=== PATIENT | male | born 1950 | race Hispanic/Latino ===

== ENCOUNTER 2023-09-04 10:03 | Inpatient (IN) | payer OTHER ==
--- OUTSIDE RECORDS SUMMARY | 2023-09-04 20:50 | XMS REPORT | Clinical Summary ---
Author Name Unknown Organization [facility] Address [address] [place] [address] Care Team Providers Care Qual Field Manager Name Role Phone Juwan Wu MD Unavailable [phone] Zayda Richards MD Primary Care Provider [phone] Merline Britt MD Unavailable [phone] Praveena Harman Unavailable [phone] Williams Ortiz MD Unavailable [phone] Hany Jackson MD Unavailable + [phone] Allergies No known active allergies Medications Medication Sig Dispensed Refills Start Date End Date Status amLODIPine (NORVASC) 5 mg tablet 12/28/2021 Active aspirin 81 mg EC tablet Take 1 tablet (81 mg) by mouth. Active carvedilol (COREG) 3.125 mg tablet Take 1 tablet (3.125 mg) by mouth. 01/20/2021 Active clonazePAM (KlonoPIN) 0.5 mg tablet TAKE 1 TABLET BY MOUTH EVERY NIGHT AT BEDTIME Active clopidogrel (PLAVIX) 75 mg tablet Take 1 tablet (75 mg) by mouth. 03/15/2012 Active folic acid (FOLVITE) 400 mcg tablet Take 1 tablet (400 mcg) by mouth. Active GINKGO BILOBA LEAF EXTRACT ORAL Take by mouth. Active icosapent ethyl 1 gram cap Take 4 g by mouth. 03/11/2021 Active NovoLOG U-100 Insulin aspart 100 unit/mL injection 12/29/2020 Active lisinopril (PRINIVIL,ZESTRIL) 40 mg tablet Take 1 tablet (40 mg) by mouth. 03/15/2012 Active melatonin 10 mg cap Take 5 mg by mouth. Active pyridoxine (VITAMIN B-6) 50 mg tablet Take 1 tablet (50 mg) by mouth. Active simvastatin (ZOCOR) 40 mg tablet Take 1 tablet (40 mg) by mouth. 03/15/2012 Active atorvastatin (LIPITOR) 80 mg tablet Take 1 tablet (80 mg) by mouth at bedtime. 06/18/2023 Active Active Problems Problem Noted Date Diagnosed Date Gastrointestinal stromal tumor of stomach 2022 Type 1 diabetes mellitus 11/26/2022 Encounters Date Type Department Care Team Description 07/08/2023 12:45 PM CDT Follow[facility]Up [facility] [address] [place] [address] Main dg, 9th [place] [address] Zayda Richards MD Gastrointestinal stromal tumor of stomach 07/08/2023 6:22 AM CDT - 07/08/2023 11:59 PM CDT Hospital Encounter Main CT IMAGING [address] [place], [place] [address]dg, 3rd [place] [address] Snehal Moulton PA Gastrointestinal stromal tumor of stomach Discharge Disposition: Home 07/08/2023 Travel 11/26/2022 8:20 PM CDT Ancillary Procedure [facility] [address] [place] [id number] Zayda Richards MD Cancer 11/26/2022 8:15 PM CDT Ancillary Procedure [facility] [address] [place] [id number] Zayda Richards MD Cancer 11/26/2022 8:10 PM CDT Ancillary Procedure [facility] [address] [place] [id number] Zayda Richards MD Cancer 11/26/2022 8:05 PM CDT Ancillary Procedure [facility] [address] [place] [id number] Zayda Richards MD Cancer 11/26/2022 8:00 PM CDT Ancillary Procedure [facility] [address] [place] [id number] Zayda Richards MD Cancer 11/26/2022 11:15 AM CDT Office Visit [facility] [address] [place] [address], 9th [place] [address] Zayda Richards MD Gastrointestinal stromal tumor of stomach (Primary Dx) 11/26/2022 7:30 AM CDT Ancillary Procedure CT Imaging [address] [facility], 7th [place] [address] Snehal Moulton PA Gastrointestinal stromal tumor of stomach 11/26/2022 7:00 AM CDT NPR MDA PATIENT ACCESS Zayda Richards MD 11/26/2022 Travel 11/16/2022 Orders Only [facility] [address] [place] [address], 9th [place] [address] Snehal Moulton PA Gastrointestinal stromal tumor of stomach (Primary Dx) 11/12/2022 Lab Requisition [facility] Isaías Loera MD Schwartz, Mary Rebecca, MD 11/12/2022 Lab Requisition [facility] Isaías Loera MD Mody, Dina, MD 11/10/2022 8:05 PM CDT Ancillary Procedure [facility] [address] [place] [id number] Zayda Richards MD Cancer 11/10/2022 8:00 PM CDT Ancillary Procedure [facility] [address] [place] [id number] Zayda Richards MD Cancer 10/30/2022 Travel 09/21/2022 8:00 PM CDT Ancillary Procedure [facility] [address] [place] [id number] Guy Dowell MD Cancer after 09/04/2022 Surgical History Surgery Date Site/Laterality Comments BACK SURGERY 2021 COLONOSCOPY Check - September 2014 PROSTATE SURGERY 2020 STOMACH SURGERY Jun [address] ENT PLACEMENT 2001, 2016 FINGER SURGERY CATARACT EXTRACTION BILATERA L W/ ANTERIOR VITRECTOMY Medical History Medical History Date Comments Hypertension 1991 Peripheral vascular disease 1991 Hearing loss 1989 Loss of sense of smell 2004 Dependence on continuous positive airway pressur e ventilation 1998 Hepatitis 1984 Renal stone Nov 2021 Sexual dysfunction 1986 Anemia 1992 Arthritis 2021 Type 1 diabetes mellitus 196 Malignant neoplasm of prostate 2020 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 Family History Medical History Relation Name Comments Cervical cancer Sister Candi In treatment s Relation Name Status Comments Sister Candi Social History Tobacco Use Types Packs/Day Years Used Date Smoking Tobacco: Never Smokeless Tobacco: Never Tobacco Cessation:Counseling Given: Not Answered Alcohol Use Standard Drinks/Week Comments Yes 1 (1 standard drink = 0.6 oz pur e alcohol) Per month 1 wine/1 liquor Sex and Gender Information Value Date Recorded Sex Assigned at Not on file Gender Identity Not on file Sexual Orientation Not on file Job Start Date Occupation Industry Not on file Not on file Not on file Obstetrics History Last Filed Vital Signs Vital Sign Reading Time Taken Comments Blood Pressure 121/56 07/08/2023 9:17 AM CDT Pulse 77 07/08/2023 9:17 AM CDT Temperature 36.4 C (97.5 F) 07/08/2023 9:17 AM CD T Respiratory Rate 16 07/08/2023 9:17 AM CDT Oxygen Saturation 99% 07/08/2023 9:17 AM CDT Inhaled Oxygen Concentration - - Weight 82.2 kg (181 lb 3.5 oz) 07/08/2023 9:10 A M CDT Height 170.5 cm (5' 7.13") 11/26/2022 11:07 AM C DT Body Mass Index 28.28 11/26/2022 11:07 AM CDT Plan of Treatment Upcoming Encounters Date Type Department Care Team (Late st Contact Info) Description 01/06/2024 6:55 AM CDT Ancillary Procedure CT Imaging [address] [facility], 7th [place] [address] Snehal Moulton PA [address] [place] [address] 01/06/2024 10:00 AM CDT [facility] Main Bldg, 9th [place] [address] Zayda Richards MD [address] [place] [address] Health Maintenance Due Date Last Done Comments COVID-19 Vaccine (2022- 4 season) 2022 08/20/2021, 08/20/2021, 11/29/2020, Additional history exists Influenza Vaccine 12/12/2023 01/22/2022, 02/07/2021 Procedures Procedure Name Priority Date/Time Associated Diagnosis Comments CT ABDOMEN PELVIS W CONTRAST Routine 07/08/2023 8:12 AM CDT Gastrointestinal stromal tumor of stomach POC GLUCOSE SCREEN Routine 07/08/2023 8: 02 AM CDT POC GLUCOSE SCREEN Routine 07/08/2023 7: 35 AM CDT POC GLUCOSE SCREEN Routine 11/26/2022 10 :[address] ABDOMEN PELVIS W CONTRAST Routine 11/26/2022 10:18 AM CDT Gastrointestinal stromal tumor of stomach POC CREATININE Routine 11/26/2022 8:53 AM CDT [facility]SI MRI ABDOMEN Routine 09/09/2022 10:52 AM CDT Cancer after 09/04/2022 Results * CT Abdomen Pelvis with Contrast (07/08/2023 8:12 AM CDT) Only the most recent of2 resultswithin the time period is included. Anatomical Region Laterality Modality Abdomen, Pelvis Computed Tomogra phy 07/08/2023 8:24 AM CDT Impressions 07/08/2023 8:36 AM CDT No evidence for metastatic disease in the abdomen or pelvis. ACTIONABLE ITEMS/RECOMMENDATIONS*: None. *An Actionable Finding is a finding that may be unrelated to the original reason for imaging but potentially actionable, meaning further investigation may be necessary. The Actionable Findings Vigilance Unit (AFVU) assists medical providers with responding to additional radiologic findings that are unexpected and potentially actionable. Narrative 07/08/2023 8:36 AM CDT FULL RESULT: Examination: CT ABDOMEN PELVIS W CONTRAST on 07/08/2023 8:12 AM. Clinical History: Gastrointestinal stromal tumor of stomach Indication: oncologic surveillance Comparison: CT study of the abdomen and pelvis 11/27/2023. Technique: CT ABDOMEN PELVIS W CONTRAST. FINDINGS: Lower Thorax: No suspicious pulmonary nodules or pleural effusions in the lung bases. Chronic subsegmental atelectasis or scarring is present in the right middle lobe and lower lingula. Hepatobiliary: No suspicious hepatic lesion. No biliary dilatation. No cholecystitis. Spleen: No splenomegaly. Stable small accessory spleen. Pancreas: No mass or ductal dilatation. Adrenal Glands: No mass. Kidneys, Ureters, Bladder: No hydronephrosis. No suspicious renal lesion. No bladder mass. Gastrointestinal Tract: Stable postoperative changes are present along the lesser curvature of the stomach. No measurable gastric mass is identified given the incomplete gastric distention. No obstruction. A moderate fecal load is present. Pelvic Organs: No pelvic mass. Peritoneum/Retroperitoneum: No ascites. Lymph Nodes: No regional or distant lymphadenopathy. Musculoskeletal: Stable multilevel degenerative-like bone changes are seen. Procedure Note Som Covarrubias MD - 07/08/2023 FULL RESULT: Examination: CT ABDOMEN PELVIS W CONTRAST on 07/08/2023 8:12 AM. Clinical History: Gastrointestinal stromal tumor of stomach Indication: oncologic surveillance Comparison: CT study of the abdomen and pelvis 11/27/2023. Technique: CT ABDOMEN PELVIS W CONTRAST. FINDINGS: Lower Thorax: No suspicious pulmonary nodules or pleural effusions in the lung bases. Chronic subsegmental atelectasis or scarring is present in the rightmiddle lobe and lower lingula. Hepatobiliary: No suspicious hepatic lesion. No biliary dilatation. No cholecystitis. Spleen: No splenomegaly. Stable small accessory spleen. Pancreas: No mass or ductal dilatation. Adrenal Glands: No mass. Kidneys, Ureters, Bladder: No hydronephrosis. No suspicious renal lesion. No bladder mass. Gastrointestinal Tract: Stable postoperative changes are present along the lesser curvature of thestomach. No measurable gastric mass is identified given the incomplete gastricdistention. No obstruction. A moderate fecal load is present. Pelvic Organs: No pelvic mass. Peritoneum/Retroperitoneum: No ascites. Lymph Nodes: No regional or distant lymphadenopathy. Musculoskeletal: Stable multilevel degenerative-like bone changes are seen. IMPRESSION: No evidence for metastatic disease in the abdomen or pelvis. ACTIONABLE ITEMS/RECOMMENDATIONS*: None. *An Actionable Finding is a finding that may be unrelated to the originalreason for imaging but potentially actionable, meaning furtherinvestigation may be necessary. The Actionable Findings Vigilance Unit(AFVU) assists medical providers with responding to additional radiologicfindings that are unexpected and potentially actionable. Snehal BUENO IMG CT ORDERABLES * (ABNORMAL) POC Glucose Screen - Fingerstick (07/08/2023 8:02 AM CDT) Only the most recent of3 resultswithin the time period is included. Glucose Screen 215(H) 70 - 99 mg/dL 07/08/2023 8:04 AM CDT [facility] POC Sample Type Capillary 07/08/2023 8:04 AM CDT [facility] Blood 07/08/2023 8:02 AM CDT 07/08/2023 8:04 AM CDT Narrative [facility] - 07/08/2023 8:04 AM CDT Capillary blood samples, e.g. obtained by fingerstick, may have inaccurate results in patients with decreased peripheral blood flow. Method description: All results are measured using Electrochemistry test methodology. The glucose in the sample mixes with the reagents on the test strip. The reaction produces an electric current. The amount of current produced is proportional to the glucose concentration in the blood. All POC Glucose screen test results, including critical values, must be interpreted and evaluated in the context of the patients' clinical findings. It is recommended to confirm any questionable test results by core lab methodology. Snehal BUENO POCT ORDERABLES - DEVICE [facility] Unless otherwise noted, all lab tests performed by: Division of Pathology and Laboratory Medicine [address] [place] [address] [place] [address] * POC Creatinine (11/26/2022 8:53 AM CDT) POC Crea 1.0 0.6 - 1.3 mg/dL POC [facility] Comment: Medications, especially hydroxyurea or supplements, such as ascorbate, can interfere with test results causing a falsely and significantly higher result than expected. If a problem is suspected with a patient's result, a sample should be sent to the laboratory for confirmatory testing. Method description: The i-STAT is an analyzer used for in vitro quantification of various analytes in whole blood. The device uses a single disposable cartridge which contains microfabricated sensors, a calibration solution, fluidics system, and a waste chamber. Each test cartridge contains chemically sensitive biosensors on a silicon chip that are configured to perform specific tests. The microfabricated sensors measure analyte concentration by an electrochemical assay. POC EGFR 81 >=60 mL/min/1. 73 sq. m POC [facility] Comment: The eGFRcr is calculated with the 2020 CKD-EPI creatinine equation using creatinine, patient's age, and sex for adults 18 years of age and older. Other factors, especially muscle mass, may affect accuracy and need to be considered. According to the Kidney Disease: Improving Global Outcomes (KDIGO) CKD Work Group 2012 Clinical Practice Guideline, chronic kidney disease (CKD) is defined as the abnormalities of kidney structure or function, present for more than 3 months, with implications for health. CKD should be classified by cause, GFR category, and albuminuria category. KDIGO guidelines provide the following GFR categories Stage Description GFR mL/min/1.73 m2 G1* Normal or high >= 90 G2* Mildly decreased 60-89 G3a Mildly to moderately decreased 45-59 G3b Moderately to severely decreased 30-44 G4 Severely decreased 15-29 G5 Kidney failure <15 *In the absence of evidence of kidney damage, neither G1 nor G2 fulfill criteria for CKD. POC Clean Dev Yes POC [facility] Performing [facility] POC [facility] Comment:[facility], [address] [facility], [place] [address]; [employer] Technician: Agueda Blandon MD; Waived Point of Care Testing - Jannie Corrales MD Blood 11/26/2022 8:53 AM CDT 11/26/2022 8:53 AM CDT Snehal BUENO POCT ORDERABLES - DEVICE POC [facility] Unless otherwise noted, all lab tests performed by: Division of Pathology and Laboratory Medicine [address] [place] [address] * OSI MRI ABDOMEN (09/09/2022 10:52 AM CDT) Narrative Systemgenerated, Documentation - 09/21/2022 10:52 AM CDT Study acquired at another institution. For comparison only. No MD [facility] tello interpretation requested or available. Guy Dowell MD IMG OUTSIDE IMAGE OR DERABLES after 09/04/2022 Care Teams Qual Field Manager Relationship Specialty Start Date End Date Juwan Wu MD [address] [place] [phone] PCP - External Primary Care Provider Family Practice 10/30/22 Zayda Richards MD [address] [place] [address] PCP - General [facility] 10/30/22 Merline Britt MD [address] [place], [place] [phone] PCP - External Follow Up A Cardiology 11/26/22 Praveena Harman [address] [facility], [address] [place], [place] [phone] PCP - External Follow Up B 11/26/22 Williams Ortiz MD [address] [place], [place] [phone] PCP - External Follow Up C Urology 11/26/22 Hany Jackson MD [address] [facility] [address] [place] [phone] PCP - External Follow Up D Internal Medicine 11/26/22
[2023-09-04] MEDS ORDERED: ACETAMINOPHEN 325 MG TABLET PO PRN (22:08)
[2023-09-04] MEDS ORDERED: ALBUTEROL 2.5 MG/3 ML NEB SOL NEB PRN (22:09)
[2023-09-04] MEDS ORDERED: IPRATROPIUM BROM 0.5MG/2.5ML NEB PRN (22:09)
[2023-09-04] MEDS ORDERED: DOCUSATE NA 100 MG CAP PO PRN (22:17)
[2023-09-04] MEDS ORDERED: methocarbamoL 500 MG TAB PO PRN (22:19)
[2023-09-04] MEDS ORDERED: NITROGLYCERIN 0.4 MG/TAB SL PRN (22:20)
[2023-09-04] MEDS ORDERED: POLYETHYL GLY 3350 17 GM/DOSE PO PRN (22:22)
[2023-09-04 22:50] VITALS: BMI 22.4
[2023-09-04] MEDS ORDERED: ATORVASTATIN 80 MG TAB ONE (22:51)
[2023-09-04] MEDS: ATORVASTATIN 80 MG TAB PO SCH (22:53)
[2023-09-04] MEDS ORDERED: INSULIN PUMP SQ SCH (23:15)
[2023-09-05 05:01] LABS: Specific Gravity 1.021 (1.005-1.030); Sqamous Epithelial <5 /HPF (None Seen); Urine Bacteria None Seen /HPF (<20); Urine Bilirubin NEGATIVE (Negative); Urine Blood Negative (Negative); Urine Clarity Turbid (Clear); Urine Color Light-Yellow (Yellow); Urine Culture Reflex Order NOT NEEDED; Urine Glucose NEGATIVE (Negative); Urine Ketones NEGATIVE (Negative); Urine Micro Reflex YN NO BILL MICROSCOPIC; Urine Nitrite NEGATIVE (Negative); Urine Protein NEGATIVE (Negative); Urine RBC <5 /HPF (None Seen); Urine Urobilinogen Normal (Normal); Urine WBC <5 /HPF (<5); Urine pH 5.5 (5.0-7.0)
[2023-09-05] MEDS: PANTOPRAZOLE 40MG TABLET PO SCH (07:12)
[2023-09-05 07:52] LABS: Absolute Basophils 0.2 K/uL (0-0.5); Absolute Eosinophils 0.3 K/uL (0-0.5); Absolute Lymphocytes (CBC) 0.8 K/uL (0.7-4.9); Absolute Monocytes 0.8 K/uL (0.1-1.3); Absolute Neutrophil 5.1 K/uL (1.8-8.0); Basophils % 2.3 % (0-1.3); Eosinophils % 4.4 % (0-4.4); Hematocrit 28.4 % (39.6-49.0); Hemoglobin 9.6 g/dL (13.6-17.9); MCH 31.3 pg (27.0-35.0); MCHC 33.9 g/dL (32.0-36.0); MCV 92.3 fL (80-100); MPV 7.9 fL (7.6-11.3); Monocytes % 10.9 % (3.3-12.3); Neutrophils % 71.4 % (41.7-73.7); Nucleated Red Blood Cells % 0.1 % (0-0); Platelets 509 thou/uL (152-406); RBC Red Blood Cell Count 3.08 M/uL (4.33-5.43); Red Cell Distribution Width 14.9 % (12.1-15.2)
[2023-09-05 08:24] LABS: Magnesium 2.8 mg/dL (1.6-2.4); Prealbumin 14.4 mg/dL (20-40)
[2023-09-05] MEDS: ASPIRIN 81 MG CHEWABLE TABLET PO SCH (09:03)
[2023-09-05] MEDS: TICAGRELOR 90 MG TABLET PO SCH (09:03)
[2023-09-05] MEDS: POTASSIUM CL SA 10 MEQ TAB PO SCH (09:03)
[2023-09-05] MEDS: AMIODARONE HCL 200 MG TAB PO SCH (09:05)
[2023-09-05] MEDS: METOPROLOL XL 25 MG TAB PO SCH (09:06)
[2023-09-05] MEDS: BUMETANIDE 1 MG TABLET PO SCH (09:54)
[2023-09-05] MEDS ORDERED: HEPARIN 5000 UNIT/ML 1 ML VIAL SQ SCH (17:00)
--- NOTE | 2023-09-05 19:15 | HP ---
Date of Admission: 09/04/2023 Time Of Service: 12:00 noon. Chief Complaint: "I had a heart attack, but I did not feel any pain." History Of Present Illness: Mr. Pizano is a 73-year-old patient with insulin-dependent diabetes juan litus, prostate cancer, coronary artery disease, chronic kidney disease, anemia, hypertension, dyslip idemia, sleep apnea who said while he was doing activities and exercise, he became very short of mao th and that eventually led to him being evaluated. He had a cardiac cath procedure at [facility] nd was transferred [facility] for higher level of care. There, he was found to be in respiratory failure, had acute renal insufficiency, coronary artery disease, and other comorbidities in addition to a fao-QE-nwnbikr myocardial infarction. Furthermore, he had a pleural effusion diagno sed with pneumonia and pulmonary edema. He had transaminitis and eventually also cardiogenic shock. He was treated in the ICU, had multiple cardiac catheterization procedures and cardioversion and rec eived antibiotics. He was in ICU in critical condition and critical care that was received from 08/10 until 08/31. While there, again suffered respiratory failure, had pleural effusion and systemic in fection and a cardiogenic shock. Due to his hospital course leading up to hospitalization, he did be come significantly debilitated as his hospital course was too complicated for him to do any therapy. Previously, he was fully independent, going to the gym regularly and living in his single-story home with his without any limitations. Currently, he requires moderate assistance for transfers goi ng from the bed to chair, to toilet, and static standing. Minimum assistance to begin to ambulate an d was only able to go 120 feet and he required multiple rest breaks. Since his medical conditions blake ve now stabilized and he is significantly debilitated related to his hospitalization and myocardial i nfarction along with the pneumonia and renal failure, in addition to atrial fibrillation with rapid v entricular response, he is now determined to be an appropriate candidate for aggressive inpatient pedro abilitation and is admitted for physical and occupational therapy. Past Medical History: Insulin-dependent diabetes mellitus, prostate cancer, coronary artery disease, chronic kidney disease, hypertension, dyslipidemia, sleep apnea. Past Surgical History: Bilateral cataract surgery, left arm surgery, prostate surgery, back surgery. Allergies: NO KNOWN DRUG ALLERGIES. Medications: Tylenol 650 mg every 6 hours as needed, albuterol nebulizer 2.5 mg every 4 hours as nee ded, Cordarone 200 mg twice daily, Lipitor 80 mg at bedtime, Bumex 1 mg twice daily, Colace 200 mg da zakia, ipratropium 0.5 mg nebulizer every 4 hours as needed, Robaxin 500 mg 3 times daily, Toprol-XL 12 .5 mg daily, Nitrostat 0.4 mg sublingual as needed for chest pain, Protonix 40 mg daily, potassium 20 mEq daily, Brilinta 90 mg 3 times daily. Laboratory Studies: White blood cell count 7.1, hemoglobin 9.6, platelets 509. Sodium 137, potassiu m 4.0, chloride 103, carbon dioxide 29, BUN 47, creatinine 1.64, glucose 75 up to 148, calcium 8.6. Magnesium 2.8. Albumin 3.0, prealbumin 14.4. Aside from in terms of his urinalysis, turbid clarity, urinalysis is normal. Family History: Noncontributory. Current Level Of Functioning: Setup assistance for eating, oral hygiene. Moderate assist for toilet ing, showering, upper body dressing, lower body dressing and donning and doffing of the footwear. Mo derate assistance needed for rolling left to right, from going sitting to lying and lying to sitting, to standing all moderate assistance. Transferring from bed to chair, to toilet, to shower moderate assistance. Moderate assistance required for ambulating 120 feet with a rolling walker. Physical Examination: Vital Signs: Blood pressure 112/59, pulse 79, respiratory rate 16, temperature 98.1, oxygen saturati on 99%. Weight 152 pounds, height 5 feet 9 inches, BMI 22.5. General: Mr. Pizano is resting in bed. HEENT: He is normocephalic, atraumatic. Sclerae anicteric. Oropharynx moist. Neck: Supple. Chest: Clear. Heart: Regular at this point. Extremities: No significant edema, cyanosis, or clubbing. He has diffuse weakness in the lower extr emities and upper extremities, but no focal findings on examination. Review of Systems: He says he is not able to feel any pain in his chest because of multiple surgeries and in any way, he knows if he is having issues with heart, there is fatigue or shortness of breath. Otherwise, he say s he has no fevers or chills. No significant myalgias, arthralgias, rash, headache, weight change. Assessment: Mr. Pizano is a 73-year-old patient in the rehabilitation unit with impairment category is 06, neurologic condition. His impairment group code is 03.8 neuromuscular disorder. Etiologic d iagnosis, congestive heart failure myopathy. His comorbidities are atrial fibrillation, renal insuff iciency, anemia, coronary artery disease, chronic kidney disease, decreased mobility, decreased physi jori functioning, diabetes mellitus type 2, gastroesophageal reflux disease, hypertension, non-ST-segm ent myocardial infarction, pleural effusion, pneumonia, respiratory failure, transaminitis, and hypon atremia. He also has had recent cardiogenic shock, status post cardiac catheterization and cardiover alfonso and there is atrial fibrillation with rapid ventricular response. Plan: 1.He will have physical, occupational and if need be, speech therapy for 3.5 hours, 5 of 7 days. 2.For his risk of stroke and myocardial infarction, continue the Brilinta 90 mg daily. Also, hepari n 5000 units twice daily, Colace 200 mg daily for constipation. Continue the loop diuretic, Bumex fo r fluid management, Lipitor for dyslipidemia, Cordarone for his heart rate control, albuterol nebuliz er for his respiratory failure. Potassium is replacement on board, Protonix for GE reflux, Nitrostat for his discomfort and pain, Toprol-XL 25 mg twice daily for heart rate control the methocarbamol, m uscle relaxant for his spasms. Comorbidities That Are Impacting Rehabilitation: He has a complicated course with myocardial infarct ion, pneumonia, infection, renal insufficiency, those have to be monitored very carefully with blood work, imaging of the chest as appropriate, and EKG and if need be procalcitonin and lactic acid to ru le out the systemic infection. The patient says he does not necessarily know if he is experiencing h eart attack, which is normally manifesting with pain and he says he does not feel pain in the chest a richy after many surgeries. His manifestation is typically fatigue or weakness, shortness of breath an d those will be watched more carefully during therapy. Rehab Specific Plan: Mr. Pizano will have physical and occupational therapy for 3 hours a day, 5 of 7 days. If need be, speech therapy will be 0.5 hours, 5 of 7 days. We will work on improving his a bility to transfer from bed to chair, to toilet, to shower. Also with physical therapy, his ability to ambulate more than household distances, to go up and down steps, may use a rolling walker, wheelch air, and cane. There are no assistive device depending on how he is recovering. Also, will have spe ech if need be to work on his judgment, decision making, plans for medication management, and dischar ge, as well as physician followup to be able to process those properly. Mr. Pizano has a good understanding of the process of admission to the inpatient rehabilitation [facility] and how he will benefit from the physical, occupational, and speech therapy. He will have 24 ho urs a intermediate, daily visit evaluation and management, social service evaluation management fo r discharge planning in addition to setting of his rehabilitation to continue after his therapy. Barriers To Discharge: His chest pain, which is per the patient non-existent and usual indication fo r pain are the circuits of cardiac ischemia will have to be looked for such as shortness of breath, f atigue, or loss of vision or blurred vision or pain perhaps in the neck area. However, he is current ly on multiple medications, has had cardiac issues addressed and he is currently stable. Length Of Stay: About 12 days. Disposition: Home with family in a single family home and therapy potentially may be continued outpa tient depending on how well he is doing. Prognosis: Good. Rehab Specific Goals: 1.Become independent with upper and lower body dressing and donning and doffing footwear with transf erring to the toilet, doing his toileting to shower and performing showering and all activities of da zakia living. 2.Become independent with ambulation, covering 250 feet with a rolling walker. 3.Independently propel a wheelchair 250 feet. 4.Independently go up and down 10 steps with bilateral handrails. 5.Independently perform all cognitive functioning. The above goals were reviewed with Mr. Pizano and he is in agreement. By signing this document, I acknowledge I personally performed a full physical examination on Mr. Eda shea no later than 24 hours after his admission to the inpatient rehabilitation facility and determin ed that he is able to tolerate the above course of treatment at an intensive level for a reasonable p eriod of time. A detailed individualized plan of care for him will be completed by hospital day 4 ba sed on the preadmission screen, history and physical, and therapy evaluations. DEVANTE Voice ID: [id number]
[2023-09-05] MEDS: HEPARIN 5000 UNIT/ML 1 ML VIAL SQ SCH (21:15)
[2023-09-06] MEDS: PANTOPRAZOLE 40MG TABLET PO SCH (08:35)
[2023-09-07] MEDS: APIXABAN 2.5 MG TABLET PO SCH (09:50)
[2023-09-07] MEDS: BUMETANIDE 1 MG TABLET PO SCH (10:15)
[2023-09-07] MEDS: METOPROLOL XL 25 MG TAB PO SCH (10:15)
[2023-09-07] MEDS: AMIODARONE HCL 200 MG TAB PO SCH (19:39)
--- NOTE | 2023-09-08 01:06 | PN ---
Date of Progress Note: 09/07/2023 Subjective: Mr. Pizano is doing well. He is very happy with his progress so far. Since his streng th is much better, his endurance, balance, coordination all improving very well. Review of Systems: No fevers or chills. No nausea or vomiting. No myalgias or arthralgias. No rash. No psychiatric i ssues. Physical Examination: Vital Signs: Blood pressure is now 106/51, pulse 70, respiratory rate 16, temperature 97.8, and oxyg en saturation 99%. General: Mr. Pizano is sitting comfortably. He is in no acute distress. HEENT: He is normocephalic, atraumatic. Sclerae anicteric. Oropharynx pink and moist. Neck: Supple. Chest: Clear. Heart: Regular. Extremities: Show no significant edema, cyanosis, or clubbing. Proximal weakness of lower extremiti es present. Laboratory Studies: White blood cell count 7.1, hemoglobin 9.6, platelets 509. Sodium 137, potassiu m 4.0, chloride 103, carbon dioxide 29, BUN 47, creatinine 1.64, glucose range from 75 to 175. Urina lysis, turbid clarity, otherwise negative. X-ray/imaging: No x-rays or imaging. Medications: Tylenol 650 mg every 4 hours as needed, albuterol nebulizer 2.5 mg every 4 hours as nee ded, amiodarone 100 mg twice daily, Eliquis 2.5 mg twice daily, Lipitor 80 mg at bedtime, Bumex 1 mg twice daily, Colace 200 mg daily, Atrovent nebulizer 0.5 mg every 4 hours as needed, Robaxin 500 mg 3 times daily, Toprol-XL 12.5 mg daily, Nitrostat 0.4 mg sublingual as needed for chest pain rated 2 t o 4, Protonix 40 mg daily, potassium 20 mEq daily, Brilinta 90 mg twice daily, and potassium 20 mEq d aily. Progress Made With Physical, Occupational, And Speech Therapy: Today with physical therapy, he ambul ated 750 feet with a rolling walker independently up and down 15 steps with bilateral handrails indep endently, complete bed mobilization transfer independently with multiple trials. Nmypaj-zn-dmd trans fers done independently, multiple sit to stand transfers with standby assistance. Ambulated 500 feet twice another 250 feet twice with standby assistance and a rolling walker and another 15 steps in th e gym and 22 steps using 1 handrail in the stairwell x2 trials with standby assistance. Mr. Pizano is making excellent progress recovering from his physical, occupational therapy, strength , balance, coordination, all those are improving significantly. Assessment: Mr. Pizano is a 73-year-old patient in rehabilitation unit with CHF myopathy and is rec overing excellently. Comorbid conditions are stably managed, although he does have some worsening re nal function, has bkk-VA-rnxgmpp myocardial infarction. Pleural effusion, pneumonia, respiratory landon lure, transaminitis, hyponatremia, chronic kidney disease, anemia, coronary artery disease, and atria l fibrillation. Plan: Continue with physical therapy for 3 hours a day, 5 out of 7 days. His comorbid conditions ar e listed are managed stably by continuing all medications. He does have the increased creatinine of 1.64. We will encourage hydration is 7 low prealbumin of 14.6 and albumin 3.0. His protein suppleme ntation is on board. Comorbidities That Are Impacting Rehabilitation: His renal issues currently will be addressed with i ncreased hydration and repeat BUN and creatinine as he is doing well. Electrolyte replacements also on board. He is doing excellent with all of his therapy. LB/MODL Voice ID: [id number] Report ID: [id number]
--- NOTE | 2023-09-09 01:58 | PN ---
Date of Progress Note: 09/08/2023 Time Of Service: 1:15 p.m. Subjective: Mr. Pizano is doing very well, happy about his progress so far. Sitting in bed. He de nies any complaints. He is doing everything and then some of the therapist's tasks. He is taking mu ltiple supplements and prescription medications and had some questions about his medications on disch arge that were discussed and will be sent via electronic prescription to the pharmacy. Physical Examination: Vital Signs: Blood pressure 124/60, pulse 75, respiratory rate 16, temperature 98.4, O2 saturation 9 9%. General: Mr. Pizano again is resting comfortably in between therapy sessions. HEENT: He is normocephalic, atraumatic. Sclerae are anicteric. Oropharynx is pink and moist. Neck: Supple. Chest: Clear. Heart: Regular. Extremities: He is improving very much in terms of his weakness in lower extremities. Laboratory Studies: Blood sugars ranged from 85 to 88. X-ray Imaging: No x-rays or imaging. Medications: Medications have been reviewed and are unchanged. Progress Made With Physical And Occupational Therapy: Today, he did ambulate with a rolling walker 5 00 feet and 120 feet and then 250 feet independently. He did have upright posture while ambulating. He ascended and descended 22 steps with one handrail in the stairwell and 2 trials all independently . Vhflp-wm-coimw transfers, mcpphl-rm-uez are all independently. Occupational therapy, independent w ith bed mobility, ambulated without an assistive device, such as walk independently. Ambulated 250 f eet twice with standby assistance without an assistive device. Did independent toileting, clothing m anagement. Mr. Pizano is doing excellent in terms of physical and occupational therapy, and likely be ready for discharge soon and will likely benefit from outpatient therapy. Assessment: Mr. Pizano is a 73-year-old patient in the rehabilitation unit with CHF myopathy, and h e is recovering excellently. His comorbid conditions to include hxj-SJ-vrealst elevation myocardial infarction, pneumonia, respiratory failure, transaminitis, hyponatremia, chronic kidney disease, anem ia, coronary artery disease, atrial fibrillation, which are all stably managed. Plan: 1.Continue with physical and occupational therapy for 3 hours a day, 5 of 7 days. 2.Continue with all comorbid condition medications which have been addressed and he is actually doin g excellent with that. Comorbidities That Are Impacting Rehabilitation: Aside from mild dehydration with increased BUN and creatinine, which have improved, he is doing very well and will be discharged in 2 days and have outp atient therapy to continue improving. LB/MODL Voice ID: [id number] Report ID: [id number]
[2023-09-09 06:57] LABS: Absolute Basophils 0.1 K/uL (0-0.5); Absolute Eosinophils 0.3 K/uL (0-0.5); Absolute Monocytes 0.5 K/uL (0.1-1.3); Absolute Neutrophil 3.7 K/uL (1.8-8.0); Basophils % 1.4 % (0-1.3); Eosinophils % 5.4 % (0-4.4); Hematocrit 24.7 % (39.6-49.0); Hemoglobin 8.4 g/dL (13.6-17.9); Lymphocytes % 17.5 % (15.3-44.8); MCH 31.7 pg (27.0-35.0); MCHC 34.1 g/dL (32.0-36.0); MCV 93.1 fL (80-100); MPV 8.3 fL (7.6-11.3); Monocytes % 9.4 % (3.3-12.3); Neutrophils % 66.3 % (41.7-73.7); Platelets 423 thou/uL (152-406); RBC Red Blood Cell Count 2.65 M/uL (4.33-5.43); Red Cell Distribution Width 15.4 % (12.1-15.2)
[2023-09-09 07:07] LABS: Albumin 2.7 g/dL (3.4-5.0); Anion Gap 5.2 mEq/L (5.0-15.0); Magnesium 2.5 mg/dL (1.6-2.4); Potassium 4.2 mEq/L (3.5-5.1); Prealbumin 14.5 mg/dL (20-40)
[2023-09-09] MEDS: FE SULF/FA/VIT B COMP & C TAB PO SCH (08:17)
[2023-09-09] MEDS: FERROUS SULFATE 325 MG TAB PO SCH (08:18)
--- NOTE | 2023-09-09 23:46 | PN ---
Date of Progress Note: 09/09/2023 Time Of Service: 1:20 p.m. Subjective: Mr. Pizano is excellent, doing very well in his therapy. He has no complaints. He is happy and ready for his discharge in the morning. Objective: No fevers, chills, nausea, vomiting, myalgias, arthralgias, rash, headache, or weight taya nge. Physical Examination: Vital Signs: Blood pressure 112/56, pulse 74, respiratory rate 16, temperature 98.2, O2 saturation 9 5%. General: Mr. Pizano is resting comfortably. HEENT: He is normocephalic, atraumatic. Sclerae are anicteric. Oropharynx is pink and moist. Neck: Supple. Chest: Clear. Heart: Regular. Extremities: No clubbing, cyanosis, or edema. Neurological: He has no focal neurological deficits. Improving strength proximally very well. Laboratory Studies: White blood cell count 5.5, hemoglobin 8.4 which is decreased from 9.6 four days ago, platelets 423. Sodium 136, potassium 4.2, chloride 107, carbon dioxide 28, BUN 38, creatinine 1.52, glucose ranged from 98 to 173, magnesium 2.5, albumin 2.7, prealbumin 14.5. X-ray/imaging: No new x-rays or imaging. Medications: His medications have been reviewed and are unchanged. He still has Eliquis for DVT pro phylaxis, amiodarone for rate and blood pressure control, ferrous sulfate for his anemia, and Hemocyt ePlus added also for anemia and he has again multiple medications. Progress Made With Physical, Occupational, And Speech Therapy: Today with physical therapy, supine-t o-sit transfers done independently, perform multiple tdo-xn-eijpv transfers independently and supine- to-sit transfers independently. He did pick remover multiple objects with a grabber independently. With ambulation, he used a rolling walker to cover 500 feet twice and 120 feet and 250 feet twice independ ently. He was up and down 15 steps with bilateral handrails independently. With occupational therap y, toileting independent, bathing independent, upper body dressing, lower body dressing, and donning and doffing footwear, and grooming all independent. Mr. Pizano is making excellent progress with physical and occupational therapy, and ready for discha rge in the morning. Assessment: Mr. Pizano is a 73-year-old patient in the rehabilitation unit with CHF myopathy, who i s doing excellent. He had a jsm-HQ-okbtxjc myocardial infarction, pneumonia, respiratory failure, tr ansaminitis, hyponatremia, chronic kidney disease, anemia, coronary artery disease, atrial fibrillati on, and those are managed very well. Plan: 1.Continue with physical and occupational therapy for 3 hours a day, 5 out of 7 days. 2.All medications for comorbid conditions were continued. 3.He will be ready for discharge in the morning and will have outpatient physical therapy done in mt s cardiac unit. Comorbidities That Are Impacting Rehabilitation: All comorbidities are stably managed. He does have dehydration. I encouraged hydration with fluids and otherwise again doing very well. LB/MODL Voice ID: [id number] Report ID: [id number]
[2023-09-10 06:49] VITALS: BP 100/51; TEMP 98
--- NOTE | 2023-09-10 13:32 | P.RH.PN ---
Estimated Length of Stay: 9 Expected Discharge Date: 09/10/23 Discharge Disposition Plan: Home Family Support: Yes [employer] Supervisor Goal: Mobility, Transfers, Self Care Vital Signs: Last Vital Signs Temp 98 F 09/10/23 06:41 Pulse 77 09/10/23 08:06 Resp 15 09/10/23 06:41 BP 100/51 L 09/10/23 08:06 Pulse Ox 97 09/10/23 06:41 Laboratory: Laboratory Last Values WBC 5.50 thou/uL (4.3-10.9) 09/09/23 06:07 RBC 2.65 M/uL (4.33-5.43) L 09/09/23 06:07 Hgb 8.4 g/dL (13.6-17.9) L 09/09/23 06:07 Hct 24.7 % (39.6-49.0) L 09/09/23 06:07 MCV 93.1 fL (80-100) 09/09/23 06:07 MCH 31.7 pg (27.0-35.0) 09/09/23 06:07 MCHC 34.1 g/dL (32.0-36.0) 09/09/23 06:07 RDW 15.4 % (12.1-15.2) H 09/09/23 06:07 Plt Count 423 thou/uL (152-406) H 09/09/23 06:07 MPV 8.3 fL (7.6-11.3) 09/09/23 06:07 Neutrophils % 66.3 % (41.7-73.7) 09/09/23 06:07 Lymphocytes % 17.5 % (15.3-44.8) 09/09/23 06:07 Monocytes % 9.4 % (3.3-12.3) 09/09/23 06:07 Eosinophils % 5.4 % (0-4.4) H 09/09/23 06:07 Basophils % 1.4 % (0-1.3) H 09/09/23 06:07 Absolute Neutrophils 3.7 K/uL (1.8-8.0) 09/09/23 06:07 Absolute Lymphocytes 1.0 K/uL (0.7-4.9) 09/09/23 06:07 Absolute Monocytes 0.5 K/uL (0.1-1.3) 09/09/23 06:07 Absolute Eosinophils 0.3 K/uL (0-0.5) 09/09/23 06:07 Absolute Basophils 0.1 K/uL (0-0.5) 09/09/23 06:07 Sodium 136 mEq/L (136-145) 09/09/23 06:07 Potassium 4.2 mEq/L (3.5-5.1) 09/09/23 06:07 Chloride 107 mEq/L (98-107) 09/09/23 06:07 Carbon Dioxide 28 mEq/L (21-32) 09/09/23 06:07 Anion Gap 5.2 mEq/L (5.0-15.0) 09/09/23 06:07 BUN 38 mg/dL (7-18) H 09/09/23 06:07 Creatinine 1.52 mg/dL (0.70-1.30) H 09/09/23 06:07 Est GFR (CKD-EPI) 49 ml/min (=/>90) L 09/09/23 06:07 Glucose 88 mg/dL (74-106) 09/09/23 06:07 POC Glucose 186 mg/dL (65-120) H 09/10/23 11:05 Calcium 8.6 mg/dL (8.5-10.1) 09/09/23 06:07 Magnesium 2.5 mg/dL (1.6-2.4) H 09/09/23 06:07 Albumin 2.7 g/dL (3.4-5.0) L 09/09/23 06:07 Prealbumin 14.5 mg/dL (20-40) L 09/09/23 06:07 Urine Color Light-yellow (Yellow) 09/05/23 04:28 Urine Clarity Turbid (Clear) H 09/05/23 04:28 Urine pH 5.5 (5.0-7.0) 09/05/23 04:28 Ur Specific [place]ord 1.021 (1.005-1.030) 09/05/23 04:28 Glucose (UA)(Auto) Negative (Negative) 09/05/23 04:28 Urine Ketones Negative (Negative) 09/05/23 04:28 Urine Blood Negative (Negative) 09/05/23 04:28 Urine Nitrite Negative (Negative) 09/05/23 04:28 Urine Bilirubin Negative (Negative) 09/05/23 04:28 Urine Urobilinogen Normal (Normal) 09/05/23 04:28 Ur Leukocyte Esterase Negative Radha/uL (Negative) 09/05/23 04:28 Urine RBC <5 /HPF (None Seen) 09/05/23 04:28 Urine WBC <5 /HPF (<5) 09/05/23 04:28 Ur Squamous Epith Cells <5 /HPF (None Seen) 09/05/23 04:28 U Non-Squamous Epi Cells <5 /HPF (None Seen) 09/05/23 04:28 Urine Bacteria None seen /HPF (<20) 09/05/23 04:28 Hyaline Casts 0-5 /LPF (None Seen) 09/05/23 04:28 Urine Culture Reflexed Not needed 09/05/23 04:28 Urine Total Protein Negative (Negative) 09/05/23 04:28 Weight: 152 lb 3.2 oz Wound Present: No Closed Surgical Incision Present: Yes Negative Pressure Wound Therapy Present: No Physician Update: Labs reviewed. Mild anemia, chronic kidney disease. BIMS 15. [facility] outpatient therapy. Independent 750' with walker, 22 steps x 2. Independent with self care. Summary: Patient's care plan and terminal superintendent goals have been reviewed and revised as necessary. Please see the Rehabilitation Signature page for all necessary signatures.
== END 2023-09-10 14:50 | disposition home or self-care (01) | DRG 92 ==
LOC: 5TH 20:42
PROVIDERS: ADMIT Psychiatry & Neurology Neurology with Special Qualifications in Child Neurology; ATTEND Psychiatry & Neurology Neurology with Special Qualifications in Child Neurology
DX: G72.89 Other specified myopathies (principal); E87.1 Hypo-osmolality and hyponatremia; I48.91 Unspecified atrial fibrillation; D64.9 Anemia, unspecified; I25.10 Atherosclerotic heart disease of native coronary artery without angina pectoris; E11.22 Type 2 diabetes mellitus with diabetic chronic kidney disease; I12.9 Hypertensive chronic kidney disease with stage 1 through stage 4 chronic kidney disease, or unspecified chronic kidney disease; N18.9 Chronic kidney disease, unspecified; G47.30 Sleep apnea, unspecified; I50.9 Heart failure, unspecified; K59.00 Constipation, unspecified
CPT/HCPCS: 36415; 80048; 81001; 82040; 82947; 83735; 84134; 85025; 97110; 97116; 97163; 97165; 97530; 97542; J1644